=== PATIENT | female | born 1965 | race Caucasian/White ===

== ENCOUNTER → 2019-11-14 | Outpatient (CLI) | payer MEDICARE, OTHER | LOC: LAB 11:41 | DX: N39.0 Urinary tract infection, site not specified (principal) ==

== ENCOUNTER → 2019-12-09 | Outpatient (CLI) | payer MEDICARE, OTHER | LOC: LAB 19:22 | DX: R30.0 Dysuria (principal) ==

== ENCOUNTER → 2019-12-16 | Outpatient (CLI) | payer MEDICARE, OTHER ==
[2019-12-16 17:37] LABS: HEMATOCRIT 42.4 % (37.0-47.0); LYMPH# 2.2 (1.50-4.00); MEAN CELL VOLUME 98 fl (78-100); MEAN CORPUSCULAR HEMOGLOBIN 32 pg (27-31); MEAN CORPUSCULAR HGB CONC 33 g/dL (33-37); MEAN PLATELET VOLUME 9.9 fl (7.4-10.4); MONO # 0.4 (0.20-0.80); PLATELET COUNT 164 K/mm3 (130-400); RED BLOOD COUNT 4.35 M/mm3 (4.10-5.30); RED CELL DISTRIBUTION WIDTH 14.5 % (11.5-14.5); WHITE BLOOD COUNT 5.7 K/mm3 (4.8-10.8)
[2019-12-16 17:45] LABS: ALBUMIN 4.5 g/dL (3.5-5.0); POTASSIUM 4.2 mmol/L (3.5-5.1); URINE APPEARANCE HAZY; URINE BILIRUBIN NEGATIVE (NEGATIVE); URINE BLOOD TRACE (NEGATIVE); URINE COLOR YELLOW; URINE KETONE NEGATIVE (NEGATIVE); URINE LEUKOCYTE ESTERASE 2+ (NEGATIVE); URINE MUCUS PRESENT (NOT PRESENT); URINE NITRATE NEGATIVE (NEGATIVE); URINE PROTEIN(semi-quant) TRACE mg/dL (NEGATIVE); URINE UROBILINOGEN NORMAL (NORMAL)
[2019-12-16 17:46] LABS: CALCIUM 9.3 mg/dL (8.3-10.5)
[2019-12-16 17:47] LABS: TOTAL PROTEIN 6.9 g/dL (6.4-8.3)
[2019-12-16 17:49] LABS: TOTAL BILIRUBIN 2.5 mg/dL (0.2-1.2)
[2019-12-16 17:54] LABS: MAGNESIUM 1.94 mg/dL (1.60-2.60)
[2019-12-16 18:26] LABS: ERYTHROCYTE SEDIMENTATION RATE 12 mm/hr (0-30)
== END ==
LOC: LAB 17:16
PROVIDERS: Internal Medicine
DX: E11.9 Type 2 diabetes mellitus without complications (principal); N39.0 Urinary tract infection, site not specified; I42.1 Obstructive hypertrophic cardiomyopathy

== ENCOUNTER → 2019-12-19 | Outpatient (CLI) | payer MEDICARE, OTHER | LOC: RAD 11:00 | DX: N20.0 Calculus of kidney (principal); N39.0 Urinary tract infection, site not specified ==

== ENCOUNTER → 2020-01-06 | Outpatient (CLI) | payer MEDICARE, OTHER ==
[2020-01-06 18:04] LABS: ALBUMIN 4.4 g/dL (3.5-5.0)
[2020-01-06 18:07] LABS: TOTAL PROTEIN 7.3 g/dL (6.4-8.3)
[2020-01-06 18:12] LABS: DIRECT BILIRUBIN 0.6 mg/dL (0.0-0.5)
== END ==
LOC: LAB 17:41
PROVIDERS: Internal Medicine
DX: K90.9 Intestinal malabsorption, unspecified (principal); E80.7 Disorder of bilirubin metabolism, unspecified